=== PATIENT | male | born 1965 | race Caucasian/White ===

== ENCOUNTER 2017-05-05 17:15 | Emergency (ER) | payer MEDICAID ==
--- NOTE | ~2017-05-05 | ER ---
PATIENT'S NAME: TAY OSORIO [facility] AGE: 51 Y [address] ROOM: [place] [address] LOCATION: ED ADMIT DATE: 05/05/2017 ER/Outpatient Report DISCHARGE DATE: 05/05/2017 FAMILY PHYSICIAN: Physician, Unknown ATTENDING PHYSICIAN: Re Ortega ADDENDUM: This is an addendum to Dr. Ortega's dictation. Please see her dictation for chief complaint, history of present illness, past medical history, past surgical history, social history, allergies medications, review of systems, and physical exam. The patient's transfer of care was made to myself. I was asked to follow up on laboratory analysis. HISTORY OF PRESENT ILLNESS: Briefly, the patient has not been feeling well over the past one day. Reports body aches and fatigue. He is having subjective fevers and chills. He does have some troubles urinating with some blood in his urine. He does have a history of polycystic kidney disease and whenever one of his cyst ruptures, he does have some blood. This is not unusual for him. He does report some nausea. No vomiting. No diarrhea or constipation. No headache. No abdominal pain. PAST MEDICAL HISTORY: Polycystic kidney disease, chronic kidney disease stage IV, and chronic back pain. PAST SURGICAL HISTORY: Appendectomy and left ankle. SOCIAL HISTORY: The patient smokes half pack to one pack per day for 30 years. Denies any illicit drug use or alcohol use. ALLERGIES: TO MORPHINE. MEDICATIONS: 1. Tramadol. 2. Amlodipine. 3. Lisinopril. 4. Metoprolol. PRIMARY CARE DOCTOR: Dr. Jackson. PATIENT'S NAME: TAY OSORIO [facility] AGE: 51 Y [address] ROOM: [place] [address] LOCATION: ED ADMIT DATE: 05/05/2017 ER/Outpatient Report DISCHARGE DATE: 05/05/2017 FAMILY PHYSICIAN: Physician, Unknown ATTENDING PHYSICIAN: Re Ortega LABORATORY DATA: Laboratory analysis is obtained. EKG is obtained as interpreted by myself at 1809 hours shows sinus rhythm with a rate of 92, normal axis, normal interval, no ST elevation, ST depression, or T-wave inversions. Chest x-ray shows no acute process. Procalcitonin is less than 0.05. CMP unremarkable except for a potassium of 3.3, chloride 112, BUN 26, and creatinine 2.6. He does report is normal. LFTs normal. Troponins normal. CBC is normal. Coags are normal. Lactate is normal. Urinalysis shows 25 leukocyte esterase, 500 protein, 5 ketones, 250 blood, 10 to 20 wbc's, packed rbc's, and moderate bacteria. IMPRESSION: 1. Acute complicated urinary tract infection with a history of polycystic kidney disease. 2. Chronic kidney disease stage IV. 3. Initial visit. EMERGENCY DEPARTMENT COURSE: The patient was initially seen and evaluated by Dr. Ortega. The patient was given a liter of normal saline IV. He was given 1 g of Rocephin IV. I have discussed results with the patient. He does report he feels improved at this time. I do feel he is safe for outpatient treatment at this time. I have written a prescription for Keflex for home. I have discussed following up with his primary care doctor in 1 to 2 days for re-evaluation. I have discussed following up with [facility], to call for an appointment for further evaluation of the hematuria. I have discussed return to care instructions including worsening symptoms or any other concerns to return to the emergency department as soon as possible. The patient is agreeable. He is without further questions. DISPOSITION: The patient was discharged home in good condition. DO SHARONDA CABRERA/chantelle /[id number] d: 05/05/17 2328 t: 05/06/17 1903, OUTPATIENT REPORT
--- NOTE | ~2017-05-05 | ER ---
PATIENT'S NAME: TAY OSORIO [facility] AGE: 51 Y [address] ROOM: [place] [address] LOCATION: [facility] ADMIT DATE: 05/05/2017 ER/Outpatient Report DISCHARGE DATE: 05/05/2017 FAMILY PHYSICIAN: Physician, Unknown ATTENDING PHYSICIAN: Re Ortega Time of Arrival: 1715 hours. Time of Evaluation: 1743 hours. IDENTIFICATION: A 51-year-old male. CHIEF COMPLAINT: Body aches, confusion. HISTORY OF PRESENT ILLNESS: The patient is a 51-year-old male, who used to live in [place], who recently moved to [place]. He has a history of polycystic kidney disease, chronic kidney disease stage 4, and chronic back pain. Since yesterday, he has had significant body aches, fever, chills, and fatigue. He has had some nausea and hematuria. He has back pain, but he also has chronic back pain. He has no numbness or tingling. He has had some frontal headache and some sinus congestion with clear drainage. No documented fever. ALLERGIES: TO MORPHINE, THAT CAUSES HIM TO FEEL "SICK." MEDICATIONS: He takes tramadol, amlodipine, lisinopril, metoprolol, but I do not know the doses. MEDICAL PROBLEMS: Polycystic kidney disease, chronic kidney disease stage 4, chronic back pain. PRIOR SURGERIES: Appendectomy, left ankle surgery. SOCIAL HISTORY: The patient recently moved to [place]. Tobacco use 1/2 to 1 pack per day. Alcohol use, denies. Drug use, denies. REVIEW OF SYSTEMS: All systems reviewed and negative other than what is noted in the HPI, other than he states he has recently been diagnosed with kidney stones per a scan that was done in [place], and then when I questioned him about that, he said PATIENT'S NAME: TAY OSORIO [facility] AGE: 51 Y [address] ROOM: [place] [address] LOCATION: [facility] ADMIT DATE: 05/05/2017 ER/Outpatient Report DISCHARGE DATE: 05/05/2017 FAMILY PHYSICIAN: Physician, Unknown ATTENDING PHYSICIAN: Re Ortega no, it was actually gallstones. PHYSICAL EXAMINATION: VITAL SIGNS: Height 6 feet 4 inches, weight 84.9 kg, blood pressure 168/101, pulse 99, respirations 20, temperature 97.5, sats 96%. GENERAL: A 51-year-old male with his hat pulled on over his eyes makes poor eye contact, in obvious distress with diffuse myalgia. HEENT: Head: Normocephalic. TMs not visualized. Nose: Mucosa pink, no lesions. Mouth: No lesions. Pharynx benign. NECK: Supple. No lymphadenopathy. No nuchal rigidity. LUNGS: Clear to auscultation. HEART: Regular rate and rhythm. ABDOMEN: Soft, nondistended, diffusely tender to palpation. No rebound or guarding. SKIN: [place], warm, and dry. NEURO: The patient is alert and oriented. No focal deficit. No lower extremity edema. LABORATORY DATA AND X-RAYS: Labs were ordered to include blood cultures x2. Urine, urine culture, CBC, CMS, lactate, procalcitonin, troponin, PT, PTT, chest x-ray one-view, and an EKG. EMERGENCY DEPARTMENT COURSE: IV was initiated with IV fluids at 100 mL/h, and Dr. Montelongo will assume care at shift change at 6:00 p.m. RE ORTEGA MD CAR/modl /[id number] d: 05/05/17 2242 t: 05/10/17 0711, OUTPATIENT REPORT
[2017-05-05 17:57] LABS: BILIRUBIN URINE NEGATIVE (NEGATIVE); BLOOD URINE 250 /UL (NEGATIVE); COLOR URINE BROWN (YELLOW); GLUCOSE URINE NEGATIVE (NEGATIVE); KETONE URINE 5 mg/dL (NEGATIVE); LEUKOCYTES URINE 25 /UL (NEGATIVE); NITRITE URINE NEGATIVE (NEGATIVE); PH URINE 6.5 (4.0-8.0); PROTEIN URINE 500 mg/dL (NEGATIVE); SPEC GRAVITY URINE 1.015 (1.003-1.035); TURBIDITY URINE 4+ (CLEAR); UROBILINOGEN URINE NORMAL (NORMAL)
[2017-05-05 18:06] LABS: BACTERIA URINE MODERATE (NEGATIVE); EPITHELIAL URINE 0-2 #/HPF (NEGATIVE); RBC URINE PACKED FIELD #/HPF (NEGATIVE)
[2017-05-05 18:15] LABS: BASOPHIL # 0.1 K/uL (0.0-0.2); BASOPHIL % 0.7 %; EOSINOPHIL # 0.2 K/uL (0.0-0.5); EOSINOPHIL % 3.3 %; HEMATOCRIT 37.7 % (37.0-53.0); HEMOGLOBIN 12.8 g/dL (12.0-17.0); IMMATURE GRANULOCYTE % 0.1 %; LYMPHOCYTE # 1.9 K/uL (0.8-4.0); MCH 30.7 pg (27.0-34.0); MCV 90.4 fl (83.0-98.0); MONOCYTE # 0.5 K/uL (0.0-1.0); MONOCYTE % 6.4 %; MPV 9.8 fl (9.4-12.4); NEUTROPHIL # (ANC) 4.4 K/uL (1.4-9.0); NEUTROPHIL % 62.5 %; NRBC % 0 /100WBC (0-0.00); PLATELET COUNT 256 K/uL (150-450); RBC 4.17 M/uL (4.00-6.00)
[2017-05-05 18:22] LABS: INR - (THERAPEUTIC) 0.97 (0.92-1.07); PROTIME 10.2 SECONDS (9.8-11.4); PTT 28 SECONDS (25-32)
[2017-05-05 18:32] LABS: ALBUMIN 3.5 gm/dL (3.5-5.0); ALK PHOS 72 IU/L (33-138); ALT 16 IU/L (12-78); ANION GAP 11.3 (10.0-19.0); AST 12 IU/L (10-40); BLOOD UREA NITROGEN 26 mg/dL (6-24); CALCIUM 8.5 mg/dL (8.5-10.5); CHLORIDE 112 mMol/L (96-110); CO2 23 mMol/L (22-32); CREATININE 2.7 mg/dL (0.6-1.3); POTASSIUM 3.3 mMol/L (3.7-5.1); SODIUM 143 mMol/L (135-145); TOTAL BILIRUBIN 0.4 mg/dL (0.0-1.5); TOTAL PROTEIN 6.9 g/dL (6.0-8.4)
== END 2017-05-05 20:14 | disposition disaster alternative care site (69) ==
LOC: GMED 17:15
PROVIDERS: Family Medicine
DX: N39.0 Urinary tract infection, site not specified (principal); N18.4 Chronic kidney disease, stage 4 (severe); Q61.3 Polycystic kidney, unspecified; F17.210 Nicotine dependence, cigarettes, uncomplicated; Z90.49 Acquired absence of other specified parts of digestive tract; Z88.5 Allergy status to narcotic agent; Z79.899 Other long term (current) drug therapy
CPT/HCPCS: J0696; J7030